=== PATIENT | female | born 1955 | race Caucasian/White ===

== ENCOUNTER 2020-02-09 09:14 | Day surgery (SDC) | payer MEDICARE, BC ==
[~2020-02-09] VITALS: Ht 172.7 cm; Wt 91.6 kg
[~2020-02-09 09:14] MED LIST: ASCO-184 PO; CALCIUM MAG ZINC PO; CHOL3000 PO; LATA2.5D3 EACHEYE; METF500T17 PO; TURM500C4 PO; VITA1TAB86 PO
[2020-02-09 09:42] VITALS: BP 142/91
[2020-02-09] MEDS ORDERED: CHLORHEXIDINE 15 ML UDC MM STA (09:44)
[2020-02-09] MEDS ORDERED: LACTATED RINGERS 1,000 ML IV SCH (09:46)
[2020-02-09] MEDS ORDERED: PROPOFOL 10 MG/ML, 20ML ONE (10:26)
[2020-02-09] MEDS ORDERED: AMPICILLIN/SULBACTAM 3 GM ONE (10:26)
[2020-02-09] MEDS ORDERED: GLYCOPYRROLATE 0.2MG/1ML, 5ML ONE (10:26)
[2020-02-09] MEDS ORDERED: ROCURONIUM 10 MG/ML,10ML ONE (10:26)
[2020-02-09] MEDS ORDERED: NEOSTIGMINE 1 MG/ML, 10ML ONE (10:26)
[2020-02-09] MEDS ORDERED: FENTANYL PF 100 MCG/2ML IV PRN (10:30)
[2020-02-09] MEDS ORDERED: ACETAMINOPHEN 325 MG TABLET PO PRN (10:30)
[2020-02-09] MEDS ORDERED: hydrALAzine 20 MG/ML, 1ML IV PRN (10:30)
[2020-02-09] MEDS ORDERED: OXYcodone 5 MG/5 ML ORAL.SOL UDC PO PRN (10:30)
[2020-02-09] MEDS ORDERED: ONDANSETRON 2MG/ML, 2ML IV PRN (10:30)
[2020-02-09] MEDS ORDERED: LABETALOL 5MG/ML, 20ML IV PRN (10:30)
[2020-02-09] MEDS ORDERED: AMPICILLIN/SULBACTAM 3 GM in SODIUM CHLORIDE 0.9% 100 ML IV ONE (11:00)
== END 2020-02-09 13:10 | disposition home or self-care (01) ==
LOC: OUT 09:14
PROVIDERS: ATTEND Internal Medicine Geriatric Medicine
DX: K86.89 Other specified diseases of pancreas (principal); D3A.8 Other benign neuroendocrine tumors; K21.9 Gastro-esophageal reflux disease without esophagitis; E11.9 Type 2 diabetes mellitus without complications
CPT/HCPCS: 43242; 82962; 88172; 88173; 88307; 88341; 88342; 88360; 93005; J0295; J2704; J2710; J7120